=== PATIENT | female | born 1985 | race Hispanic/Latino ===

== ENCOUNTER 2020-04-27 10:23 | Emergency (ER) | payer OTHER ==
[~2020-04-27] VITALS: Ht 154.9 cm; Wt 74.8 kg
[2020-04-27] MEDS ORDERED: BUPR15TASR PO (10:34)
[2020-04-27] MEDS ORDERED: VALT1TAB PO (10:34)
[2020-04-27] MEDS ORDERED: ALLE1TAB23 PO (10:34)
[2020-04-27] MEDS ORDERED: MELA5CAP2 PO (10:34)
[2020-04-27] MEDS ORDERED: PRAZ1CAP PO (10:34)
[2020-04-27] MEDS ORDERED: QC A650T3 PO (10:34)
[2020-04-27] MEDS ORDERED: SERT-141 PO (10:34)
[2020-04-27] MEDS ORDERED: IBUP-1114 PO (10:34)
[2020-04-27] MEDS ORDERED: ACETAMINOPHEN 325 MG TAB PO ONE (11:00)
--- NOTE | 2020-04-27 11:10 | REP ---
INDICATION: trauma, left basilar. COMPARISON: None. TECHNIQUE: Helical scanning is acquired. 5 mm axial images were reformatted. Coronal MPR images were generated. FINDINGS: Bone window settings demonstrate an intact bony calvarium. There is no evidence of skull fracture or incidental bony calvarial lesion. The visualized paranasal sinuses appear clear. No intraorbital abnormality is seen. On soft tissue window setting images; the lateral, third, and fourth ventricles are normal in size and position. Abernathy-white differentiation pattern is normal above and below the tentorium. There are is no evidence of intracranial hemorrhage. No mass, edema, infarction, or midline shift is seen. No extra-axial fluid collection is appreciated. There is a small focal calcification in the scalp in the right frontal region. IMPRESSION: Negative noncontrast head CT. <Electronically signed by Eyad Garcia > 04/27/20 1109
[2020-04-27 11:50] VITALS: BP 126/76
== END 2020-04-27 11:51 | disposition home or self-care (01) ==
LOC: M ED 10:23
DX: S06.0X0A Concussion without loss of consciousness, initial encounter (principal); Y92.9 Unspecified place or not applicable; Y93.23 Activity, snow (alpine) (downhill) skiing, snowboarding, sledding, tobogganing and snow tubing; Y99.9 Unspecified external cause status; Z79.899 Other long term (current) drug therapy

== ENCOUNTER 2020-05-29 12:59 | Inpatient (IN) | payer OTHER ==
[~2020-05-29] VITALS: Ht 154.9 cm; Wt 73.4 kg
[~2020-05-29 12:59] MED LIST: ALLE1TAB23 PO; BUPR15TASR PO; IBUP-1114 PO; MELA5CAP2 PO; PRAZ1CAP PO; QC A650T3 PO; SERT-141 PO; VALT1TAB PO
[2020-05-29] MEDS ORDERED: IMIP25TA3 PO (14:21)
[2020-05-29] MEDS ORDERED: VITA1CAP25 PO (14:21)
[2020-05-29 14:28] LABS: HEMATOCRIT 39.6 % (36.0-47.0); HEMOGLOBIN 13.6 g/dl (12.0-15.5); MEAN CORPUSCULAR HGB CONC 34.3 g/dl (32.0-36.5); MEAN CORPUSCULAR VOLUME 93.2 fl (80.0-96.0); PLATELET COUNT, AUTOMATED 328 10^3/uL (150-450); RED BLOOD COUNT 4.25 10^6/uL (4.00-5.40); WHITE BLOOD COUNT 8.4 10^3/uL (4.0-10.0)
[2020-05-29 14:56] LABS: AMPHETAMINES LEVEL URINE NEGATIVE (NEGATIVE); BARBITURATES URINE NEGATIVE (NEGATIVE); BENZODIAZEPINES URINE NEGATIVE (NEGATIVE); CANNABINOIDS URINE NEGATIVE (NEGATIVE); COCAINE METABOLITE URINE NEGATIVE (NEGATIVE); METHADONE URINE NEGATIVE (NEGATIVE); OPIATES URINE NEGATIVE (NEGATIVE); PHENCYCLIDINE URINE NEGATIVE (NEGATIVE)
[2020-05-29 15:02] LABS: ACETAMINOPHEN LEVEL < 2.0 UG/ML (10.0-30.0); ALT/SGPT 32 U/L (12-78); BILIRUBIN,DIRECT 0.2 MG/DL (0.0-0.2); BILIRUBIN,TOTAL 0.7 MG/DL (0.2-1.0); BLOOD UREA NITROGEN 8 MG/DL (7-18); CALCIUM LEVEL 8.8 MG/DL (8.5-10.1); CARBON DIOXIDE LEVEL 24 MEQ/L (21-32); CHLORIDE LEVEL 106 MEQ/L (98-107); CREATININE FOR GFR 0.61 MG/DL (0.55-1.30); ETHYL ALCOHOL (ETHANOL) < 0.003 % (0.000-0.010); GLOMERULAR FILTRATION RATE > 60.0 (>60); GLUCOSE, FASTING 97 MG/DL (70-100); POTASSIUM SERUM 3.6 MEQ/L (3.5-5.1); SALICYLATE LEVEL < 1.7 MG/DL (5.0-30.0); SODIUM LEVEL 138 MEQ/L (136-145)
[2020-05-29 15:04] LABS: HCG, SERUM QUALITATIVE NEGATIVE (NEGATIVE)
[2020-05-29] MEDS ORDERED: IBUP-1764 PO (15:05)
--- NOTE | 2020-05-29 15:35 | REP ---
INDICATION: new onset psychosis. COMPARISON: Comparison head CT study April 27, 2020.. TECHNIQUE: Helical scanning is acquired. 5 mm axial images were reformatted. Coronal MPR images were generated. FINDINGS: Bone window settings demonstrate an intact bony calvarium. There is no evidence of skull fracture or incidental bony calvarial lesion. The visualized paranasal sinuses appear clear. No intraorbital abnormality is seen. On soft tissue window setting images; the lateral, third, and fourth ventricles are normal in size and position. Abernathy-white differentiation pattern is normal above and below the tentorium. There are is no evidence of intracranial hemorrhage. No mass, edema, infarction, or midline shift is seen. No extra-axial fluid collection is appreciated. IMPRESSION: Negative noncontrast head CT. <Electronically signed by Eyad Garcia > 05/29/20 [id number]
[2020-05-29 20:01] LABS: RSV AMPLIFICATION NEGATIVE (NEGATIVE)
[2020-05-29] MEDS ORDERED: traZODone 50 MG TAB PO PRN (21:45)
[2020-05-29] MEDS ORDERED: MOM 30ML SUSPENSION UDC PO PRN (21:45)
[2020-05-29] MEDS ORDERED: MAALOX 30 ML SUSP *UDC PO PRN (21:45)
[2020-05-29] MEDS ORDERED: PRAZOSIN 1 MG CAP PO ONE (22:00)
[2020-05-29] MEDS ORDERED: buPROPion **SR TABLET** (ZYBAN) 150MG PO ONE (22:00)
[2020-05-29] MEDS ORDERED: LORazepam 1 MG TAB PO PRN (23:00)
[2020-05-29 23:46] VITALS: BP 122/81
[2020-05-30] MEDS: ACETAMINOPHEN TAB 650MG DOSE (2X325MG) PO PRN ×2 (00:50→08:46)
[2020-05-30] MEDS ORDERED: valACYclovir HCL 500 MG TAB PO PRN (01:10)
[2020-05-30] MEDS ORDERED: FEXOFENADINE 60 MG TAB PO SCH (09:00)
--- NOTE | 2020-05-30 13:43 | HPEPDOC ---
General Date of Admission May 29, 2020 at 13:00 Date of Service: May 30, 2020 Chief Complaint The patient is a 34-year-old female admitted with a reason for visit of Unspecified Depressive D/O. History of Present Illness 34 year old disabled was admitted to the [facility] for unspecified depres rd. Patient was on her way to the [facility] when she had a panic attack and had to pull [place] of the expressway and came to our ED. At present Patient is calm and cooperative does complain of some chronc back pain about3/10 in intensity dull aching in nature. Home Medications Scheduled Bupropion HCl (Bupropion HCl Sr) 150 Mg Tab.er.12h, 150 MG PO QHS, (Reported) Cholecalciferol (Vitamin D3) (Vitamin D3) 1,250 Mcg Capsule, 1,250 MCG PO 1XWK, (Reported) MONDAYS Fexofenadine HCl (Fexofenadine HCl) 180 Mg Tablet, 180 MG PO DAILY, (Reported) Prazosin Hcl (Prazosin HCl) 1 Mg Capsule, 2 MG PO QPM, (Reported) Sertraline Hcl (Sertraline HCl) 50 Mg Tablet, 50 MG PO DAILY, (Reported) Scheduled PRN Acetaminophen (Acetaminophen 8 Hour) 650 Mg Tablet.er, 650 MG PO TID PRN for PAIN, (Reported) Ibuprofen (Ibuprofen) 200 Mg Tablet, 400 MG PO Q8H PRN for PAIN, (Reported) Melatonin (Melatonin) 5 Mg Capsule, 5 MG PO QHS PRN for SLEEP, (Reported) Valacyclovir HCl (Valtrex) 1,000 Mg Tablet, 1 GM PO DAILY PRN for FLARE UP, (Reported) Allergies Coded Allergies: No Known Allergies (Unverified , 04/27/20) Past Medical History Medical History PTSD, Depression 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 Headaches allergies genital herpes Surgical History Cholecystectomy surgery for cancer in the left inner arm. Hysterectomy in apr 2019 fro DUB with precancerous cells seen in D&C colonoscopy Family History Significant Family History: No pertinent family hx (discussed with patient) Social History * Smoker: non-smoker Alcohol: Denies Drugs: denies A-FIB/CHADSVASC A-FIB History Current/History of A-Fib/PAF?: No Review of Systems Constitutional: Denies: Chills, Fever, Night Sweats Eyes: Denies: Pain, Vision change ENT: Denies: Head Aches, Ear Pain, Dysphagia Skin: Denies: Rash, Lesions, Breakdown Pulmonary: Denies: Dyspnea, Cough Cardiovascular: Denies: Chest Pain, Palpitations, Orthopnea, Paroxysmal Noc. Dyspnea, Lt Headedness Gastrointestinal: Denies: Nausea, Vomiting, Abdominal Pain, Diarrhea Genitourinary: Denies: Dysuria, Frequency, Incontinence, Retention Hematologic: Denies: Bruising, Bleeding Excessively Musculoskeletal: Reports: Back Pain; Denies: Neck Pain, Joint Pain, Muscle Pain, Spasms Neurological: Denies: Weakness, Numbness, Change in speech, Confusion Psych: Reports: Mood Normal, Depression Physical Examination General Exam: Positive: Alert, Cooperative, No Acute Distress Eye Exam: Positive: PERRLA, Conjunctiva & lids normal, EOMI; Negative: Sclera icteric ENT Exam: Positive: Atraumatic, Mucous membr. moist/pink, Pharynx Normal Neck Exam: Positive: Supple; Negative: JVD, thyromegaly Chest Exam: Positive: Clear to auscultation, Normal air movement Heart Exam: Positive: Rate Normal, Regular Rhythm, Normal S1, Normal S2; Negative: Murmurs, Rubs Abdomen Exam: Positive: Normal bowel sounds, Soft; Negative: Tenderness, Hepatospenomegaly Extremity Exam: Negative: Clubbing, Cyanosis, Edema Vital Signs Vital Signs Date Time Temp Pulse Resp B/P (MAP) Pulse Ox O2 Delivery O2 Flow Rate FiO2 05/29/20 23:46 97.1 88 18 122/81 (95) 98 Room Air Laboratory Data Labs 24H Laboratory Tests 2 05/29/20 14:08: Nucleated Red Blood Cells % (auto) 0.0, Anion Gap 8, Glomerular Filtration Rate > 60.0, Calcium Level 8.8, Total Bilirubin 0.7, Direct Bilirubin 0.2, Aspartate Amino Transf (AST/SGOT) 24, Alanine Aminotransferase (ALT/SGPT) 32, Alkaline Phosphatase 134H, Total Protein 7.0, Albumin 4.0, Albumin/Globulin Ratio 1.3, Thyroid Stimulating Hormone (TSH) 1.400, Human Chorionic Gonadotropin, Qual NEGATIVE, Salicylates Level < 1.7L, Urine Opiates Screen NEGATIVE, Urine Methadone Screen NEGATIVE, Acetaminophen Level < 2.0L, Urine Barbiturates Screen NEGATIVE, Urine Phencyclidine Screen NEGATIVE, Urine Amphetamines Screen NEGATIVE, Urine Benzodiazepines Screen NEGATIVE, Urine Cocaine Metabolite Screen NEGATIVE, Urine Cannabinoids Screen NEGATIVE, Ethyl Alcohol Level < 0.003 05/29/20 19:10: Coronavirus (COVID-19)(PCR) NEGATIVE, Influenza Type A (RT-PCR) NEGATIVE, Influenza Type B (RT-PCR) NEGATIVE, Respiratory Syncytial Virus (PCR) NEGATIVE CBC/BMP Laboratory Tests 05/29/20 14:08 Assessment/Plan 34 year old disabled was admitted to the [facility] for unspecified depression. Patient was on her way to the [facility] when she had a panic attack and had to [place] of [place] expressway and came to our ED. I am seeing the patient for medical history and physical. 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 Last follow up is in 2020 as told her her previous oncologists Has chronic left arm pain Follow up with oncology Allergies fexofenadine Genital herpes continue valcyclovir. Plan / VTE VTE Prophylaxis Ordered?: Yes KRISTA KIM MD May 30, 2020 13:10
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
[2020-05-30] MEDS ORDERED: buPROPion **SR TABLET** (ZYBAN) 150MG PO SCH (21:00)
[2020-05-30] MEDS ORDERED: PRAZOSIN 1 MG CAP PO SCH ×2 (21:00)
[2020-05-30] MEDS ORDERED: buPROPion **XL** TABLET 150MG (WELLBUTRIN XL) PO SCH (21:00)
== END 2020-05-30 15:13 | disposition home or self-care (01) | DRG 881 ==
LOC: M ED 12:59 → M ED INP 13:00 → M PSY 23:38
PROVIDERS: ADMIT Psychiatry & Neurology Child & Adolescent Psychiatry; ATTEND Psychiatry & Neurology Child & Adolescent Psychiatry
DX: F32.9 Major depressive disorder, single episode, unspecified (principal); F41.9 Anxiety disorder, unspecified; R51.9 Headache, unspecified; M54.9 Dorsalgia, unspecified; G47.33 Obstructive sleep apnea (adult) (pediatric); Z20.822 Contact with and (suspected) exposure to COVID-19; Z79.899 Other long term (current) drug therapy; Z91.410 Personal history of adult physical and sexual abuse

== ENCOUNTER → 2020-06-06 | Outpatient (CLI) | payer OTHER ==
[~2020-06-06] MED LIST changes: +GASTROGRAFIN SOLUTION 30ML (Q9963) As Ordered ONE; +IBUP-1764 PO; +IMIP25TA3 PO; +ISOVUE-370 76% 100ML VIAL As Ordered ONE; +VITA1CAP25 PO
--- NOTE | 2020-06-07 06:10 | REP ---
INDICATION: PLEXAFORM FIBROHISTIOCYTIC. COMPARISON: None TECHNIQUE: Axial contrast-enhanced images from the lung bases to the pubic symphysis using oral and 100 cc Isovue 370 intravenous contrast material. Delayed images of the abdomen obtained along with coronal and sagittal reformations. This CT examination was performed using the following dose reduction techniques: Automated exposure control, adjustment of mA and/or kv according to the patient's size, and the use of iterative reconstruction technique. FINDINGS: Liver demonstrates 5 cm hyperdense area in the right hepatic lobe along with smaller similar adjacent lesion and possible similar lesion in the left hepatic lobe which are nonspecific by current exam. The spleen, pancreas, bilateral adrenal glands and kidneys are normal. 2 cm fat containing periumbilical hernia without acute findings. The enteric system including stomach, small, and large bowel appears normal. No evidence for obstruction or acute inflammatory process. Normal terminal ileum and appendix are identified in the right lower quadrant. Scattered sigmoid diverticula without acute diverticulitis. Pelvis demonstrates normal bladder and evidence for prior hysterectomy. No ascites. No free air. No intraperitoneal or retroperitoneal adenopathy. Abdominal aorta and vasculature appear normal. Musculoskeletal structures are intact and without acute osseous abnormality. IMPRESSION: 1. Hyperdense hepatic lesions as described above are nonspecific. Differential diagnosis includes but not limited to benign hemangiomas, FNH, adenoma. Consider ultrasound follow-up. 2. No further acute abdominopelvic pathology appreciated. 3. Findings include fat containing periumbilical hernia and scattered sigmoid diverticula. <Electronically signed by Jet Jones > 06/07/20 [id number]
--- NOTE | 2020-06-07 06:14 | REP ---
INDICATION: PLEXAFORM FIBROHISTIOCYTIC COMPARISON: None TECHNIQUE: Axial contrast enhanced images from the thoracic inlet to the upper abdomen with coronal and sagittal reformations using 100 ml Isovue 370 intravenous contrast material followed by CT of the abdomen and pelvis. Coronal and sagittal reformations obtained. This CT examination was performed using the following dose reduction techniques: Automated exposure control, adjustment of mA and/or kv according to the patient's size, and use of iterative reconstruction technique. FINDINGS: Bilateral lung lugo are essentially well aerated and relatively clear. No acute consolidation, significant nodule, or mass. No significant interstitial parenchymal changes are noted. No effusion. No pneumothorax. Tracheobronchial tree is patent and without significant bronchiectasis. No axillary, hilar, or mediastinal adenopathy. Thoracic aorta, pulmonary vasculature, and heart/pericardium are essentially normal/age-appropriate. IMPRESSION: Essentially normal age-appropriate contrast-enhanced chest CT. No acute mediastinal or pleuroparenchymal process. <Electronically signed by Jet Jones > 06/07/20 0676
== END ==
LOC: M RAD 14:18
PROVIDERS: ATTEND Internal Medicine Hematology & Oncology
DX: D37.6 Neoplasm of uncertain behavior of liver, gallbladder and bile ducts (principal); K44.9 Diaphragmatic hernia without obstruction or gangrene
CPT/HCPCS: 71260; 74177; Q9963; Q9967

== ENCOUNTER → 2022-07-02 | Outpatient (CLI) | payer OTHER ==
[~2022-07-02] MED LIST changes: -GASTROGRAFIN SOLUTION 30ML (Q9963) As Ordered ONE; -ISOVUE-370 76% 100ML VIAL As Ordered ONE; +LITH150C
== END ==
LOC: M RAD 08:03
PROVIDERS: ATTEND Otolaryngology
DX: J32.0 Chronic maxillary sinusitis (principal)

== ENCOUNTER → 2022-08-08 | Outpatient (CLI) | payer OTHER | LOC: M PLARAD 13:51 | PROVIDERS: ATTEND Student in an Organized Health Care Education/Training Program | DX: M50.31 Other cervical disc degeneration, high cervical region (principal); M50.323 Other cervical disc degeneration at C6-C7 level; R51.9 Headache, unspecified; Z87.820 Personal history of traumatic brain injury ==

== ENCOUNTER → 2022-10-16 | Outpatient (CLI) | payer OTHER | LOC: M WHC 08:44 | PROVIDERS: ATTEND Nurse Practitioner Family | DX: R92.8 Other abnormal and inconclusive findings on diagnostic imaging of breast (principal) | CPT/HCPCS: 76642; 77065; G0279 ==

== ENCOUNTER → 2023-10-23 | Outpatient (CLI) | payer OTHER ==
[~2023-10-23] MED LIST changes: -ALLE1TAB23 PO; +FEXO-63 PO; +IMIP1TAB3 PO; -IMIP25TA3 PO
== END ==
LOC: M WHC 14:55
PROVIDERS: ATTEND Nurse Practitioner Family
DX: Z12.31 Encounter for screening mammogram for malignant neoplasm of breast (principal)